=== PATIENT | female | born 1985 | race Caucasian/White ===

== ENCOUNTER 2024-07-10 05:21 | Emergency (ER) | payer OTHER ==
[~2024-07-10] VITALS: Ht 167.6 cm; Wt 81.6 kg
[2024-07-10] MEDS ORDERED: ONDANSETRON ODT 4 MG TAB.RAPDIS ONE (07:45)
[2024-07-10] MEDS ORDERED: MORPHINE SULFATE 4 MG/1 ML DISP.SYRIN ONE (07:45)
[2024-07-10] MEDS: ONDANSETRON ODT 4 MG TAB.RAPDIS SL ONE (07:52)
[2024-07-10] MEDS: MORPHINE SULFATE 4 MG/1 ML DISP.SYRIN IM ONE (07:52)
[2024-07-10] MEDS ORDERED: CEphaleXIN 500 MG CAPSULE ONE (09:29)
[2024-07-10] MEDS: CEphaleXIN 500 MG CAPSULE PO ONE (09:31)
[2024-07-10] MEDS ORDERED: CEPH500C2 PO (09:34)
[2024-07-10] MEDS ORDERED: HYDR-3972 PO (09:34)
[2024-07-10] MEDS ORDERED: OXYC-128 PO (10:46)
[2024-07-10 11:07] VITALS: BP 146/104; TEMP 98.3; O2SAT 95
== END 2024-07-10 11:08 | disposition home or self-care (01) ==
LOC: ER 05:23
DX: S02.82XA Fracture of other specified skull and facial bones, left side, initial encounter for closed fracture (principal); S16.1XXA Strain of muscle, fascia and tendon at neck level, initial encounter; S60.211A Contusion of right wrist, initial encounter; S80.01XA Contusion of right knee, initial encounter; S80.02XA Contusion of left knee, initial encounter; R51.9 Headache, unspecified; Z79.899 Other long term (current) drug therapy; Z88.0 Allergy status to penicillin; T74.21XA Adult sexual abuse, confirmed, initial encounter; Y93.89 Activity, other specified; Y92.89 Other specified places as the place of occurrence of the external cause; Y99.8 Other external cause status
CPT/HCPCS: 99285; 70450; 70486; 72125; 96372; J2270; A4606; A4663; Q0162

== ENCOUNTER 2024-07-17 16:51 | Emergency (ER) | payer OTHER ==
[~2024-07-17] VITALS: Ht 167.6 cm; Wt 81.6 kg
[~2024-07-17 16:51] MED LIST: CEPH500C2 PO; HYDR-3972 PO; OXYC-128 PO
[2024-07-17 17:00] VITALS: O2SAT 96
[2024-07-17] MEDS ORDERED: ONDANSETRON 4 MG/2 ML VIAL ONE (17:30)
[2024-07-17] MEDS ORDERED: MORPHINE SULFATE 4 MG/1 ML DISP.SYRIN ONE (17:30)
[2024-07-17] MEDS ORDERED: HYDR-3980 PO (17:33)
[2024-07-17] MEDS: MORPHINE SULFATE 4 MG/1 ML DISP.SYRIN IM ONE (17:36)
[2024-07-17] MEDS: ONDANSETRON 4 MG/2 ML VIAL IM ONE (17:36)
[2024-07-18] MEDS ORDERED: HYDR-3980 PO (23:27)
== END 2024-07-17 18:09 | disposition home or self-care (01) ==
LOC: ER 16:52
DX: M79.10 Myalgia, unspecified site (principal); Z79.899 Other long term (current) drug therapy; Z88.0 Allergy status to penicillin
CPT/HCPCS: 99284; 96372 ×2; J2405; J2270; A4606; A4663

== ENCOUNTER 2024-07-18 20:18 | Emergency (ER) | payer OTHER ==
[~2024-07-18] VITALS: Ht 167.6 cm; Wt 81.6 kg
[~2024-07-18 20:18] MED LIST changes: +HYDR-3980 PO
[2024-07-18] MEDS ORDERED: ONDANSETRON 4 MG/2 ML VIAL ONE (23:22)
[2024-07-18] MEDS ORDERED: HYDROMORPHONE 1 MG/1 ML DISP.SYRIN ONE (23:22)
[2024-07-18] MEDS: HYDROMORPHONE 1 MG/1 ML DISP.SYRIN IM ONE (23:27)
[2024-07-18] MEDS: ONDANSETRON 4 MG/2 ML VIAL IM ONE (23:27)
[2024-07-18] MEDS ORDERED: HYDR-3980 PO (23:27)
[2024-07-18 23:40] VITALS: BP 127/93; O2SAT 98
== END 2024-07-18 23:41 | disposition home or self-care (01) ==
LOC: ER 20:18
DX: S16.1XXA Strain of muscle, fascia and tendon at neck level, initial encounter (principal); S00.83XA Contusion of other part of head, initial encounter; S60.211A Contusion of right wrist, initial encounter; S80.01XA Contusion of right knee, initial encounter; S80.02XA Contusion of left knee, initial encounter; G89.29 Other chronic pain; Z88.0 Allergy status to penicillin; T76.21XA Adult sexual abuse, suspected, initial encounter; Y93.89 Activity, other specified; Y92.89 Other specified places as the place of occurrence of the external cause; Y99.8 Other external cause status
CPT/HCPCS: 99284; 96372 ×2; J2405; J1171; A4606; A4663